=== PATIENT | female | born 1955 | race Two or more races ===

== ENCOUNTER 2023-05-19 15:39 | Emergency (ER) | payer OTHER ==
[~2023-05-19] VITALS: Ht 167.6 cm; Wt 68.1 kg
[2023-05-19 18:51] VITALS: BP 156/96; RESP 14; TEMP 98.2; O2SAT 99
[2023-05-19] MEDS ORDERED: ACETAMINOPHEN 325 MG TAB PO ONE (19:45)
[2023-05-19] MEDS ORDERED: ACE3T PO (19:46)
[2023-05-19 19:47] VITALS: PULSE 80
== END 2023-05-19 21:30 | disposition home or self-care (01) ==
LOC: EDUNIT# 15:39 → EDBD 15:39 → ER 15:39
DX: S29.012A Strain of muscle and tendon of back wall of thorax, initial encounter (principal); I10 Essential (primary) hypertension; V49.88XA Car occupant (driver) (passenger) injured in other specified transport accidents, initial encounter; Y93.89 Activity, other specified; Y92.89 Other specified places as the place of occurrence of the external cause; Y99.8 Other external cause status
CPT/HCPCS: 71250; 72128